=== PATIENT | male | born 1965 | race Hispanic/Latino ===

== ENCOUNTER 2022-07-08 22:37 | Emergency (ER) | payer OTHER ==
[~2022-07-08] VITALS: Ht 160 cm; Wt 65.8 kg
[2022-07-08] MEDS ORDERED: MORPHINE 2 MG SYG ONE (22:40)
[2022-07-08 22:56] LABS: BASOPHILS % (AUTO) 0.5 % (0.0-5.0); HEMATOCRIT 52.6 % (42-54); LYMPHOCYTES % (AUTO) 34.9 % (21.0-51.0); MEAN CORPUSCULAR HEMOGLOBIN 31.1 pg (27.0-33.0); MEAN CORPUSCULAR HGB CONC 34.8 g/dL (32.0-36.0); MEAN CORPUSCULAR VOLUME 89.5 fL (79-99); MONOCYTES % (AUTO) 4.1 % (3.0-13.0); NEUTROPHILS % (AUTO) 58.9 % (40.0-77.0); PLATELET COUNT (AUTO) 324 K/uL (130-400); RED BLOOD CELL COUNT(AUTO) 5.88 MIL/uL (4.50-6.20); RED CELL DISTRIBUTION WIDTH 11.9 % (11.0-15.5); WHITE BLOOD COUNT (AUTO) 13.3 K/uL (4.8-10.8)
[2022-07-08] MEDS ORDERED: CEFAZOLIN SODIUM 2 GM VIAL IVP SCH (23:00)
[2022-07-08] MEDS ORDERED: MORPHINE 2 MG SYG IVP ONE ×2 (23:00→23:30)
[2022-07-08] MEDS ORDERED: TETANUS/DIPHTHERIA TOXOID [ADULT] 0.5 ML VIAL IM ONE (23:00)
[2022-07-08] MEDS ORDERED: DIPH,PERTUSS(ACELL),TET VAC/PF 0.5 ML VIAL IM ONE (23:00)
[2022-07-08] MEDS ORDERED: 0.9%NACL 1000ML 2,000 ML IV ONE (23:00)
[2022-07-08 23:06] LABS: CREATININE 0.9 mg/dL (0.5-1.5); POTASSIUM 3.3 mmol/L (3.5-5.1)
[2022-07-08 23:11] LABS: ALBUMIN 3.9 g/dL (3.5-5.0); TOTAL PROTEIN, SERUM 8.1 g/dL (6.0-8.3)
[2022-07-08 23:12] LABS: CREATINE KINASE, TOTAL 56 U/L (21-232); SALICYLATE 4.9 mg/dL (2.8-20.0)
[2022-07-08 23:13] LABS: ACETAMINOPHEN < 1 mcg/mL (10-29)
[2022-07-08 23:15] LABS: ALCOHOL, BLOOD 247 mg/dL (0-10)
[2022-07-09 00:21] LABS: APPEARANCE,URINE CLEAR (CLEAR); BILIRUBIN,URINE NEGATIVE (NEGATIVE); COLOR,URINE COLORLESS (YELLOW); GLUCOSE, URINE (UA) >=1000 mg/dL (NEGATIVE); KETONES,URINE NEGATIVE (NEGATIVE); LEUKOCYTE ESTERASE ,URINE NEGATIVE Leu/uL (NEGATIVE); NITRATE,URINE NEGATIVE (NEGATIVE); OCCULT BLOOD,URINE NEGATIVE (NEGATIVE); PROTEIN,URINE NEGATIVE (NEGATIVE); UROBILINOGEN,URINE 0.2 mg/dL (0.2-1.0)
[2022-07-09 00:35] VITALS: BP 151/70
[2022-07-09 00:38] LABS: MUCUS,URINE RARE LPF (None Seen); RBC,URINE 0-1 /HPF (0-1); SQUAMOUS EPITHELIAL CELL,UR RARE /HPF (0-2); WBC,URINE 0-1 /HPF (0-1)
[2022-07-09] MEDS ORDERED: SILV20CR11 TP (01:12)
[2022-07-09] MEDS ORDERED: IBUP-1493 PO (01:12)
== END 2022-07-09 01:26 | disposition home or self-care (01) ==
LOC: EDH 22:37
DX: T21.21XA Burn of second degree of chest wall, initial encounter (principal); T22.151A Burn of first degree of right shoulder, initial encounter; T21.12XA Burn of first degree of abdominal wall, initial encounter; T20.17XA Burn of first degree of neck, initial encounter; F10.129 Alcohol abuse with intoxication, unspecified; F17.200 Nicotine dependence, unspecified, uncomplicated; X10.2XXA Contact with fats and cooking oils, initial encounter; Y93.89 Activity, other specified; Y92.89 Other specified places as the place of occurrence of the external cause; Y99.8 Other external cause status; Y90.9 Presence of alcohol in blood, level not specified
CPT/HCPCS: 99284; 96374; 71045; 96361; 96375; 82550; 80053; 85025; 36415; 90714; 96376; 90471; 81001; G0481; J7030; J0690; 90715